=== PATIENT | male | born 1975 | race African-American/Black ===

== ENCOUNTER 2017-06-30 00:43 | Emergency (ER) | payer SELFPAY ==
--- NOTE | 2017-06-30 00:54 | PDOC ---
History of Present Illness - General Stated Complaint: INTOX Time Seen by Provider: 06/30/17 00:52 - History of Present Illness Initial Comments: 06/30/17 01:36 41 yo M with no significant pmh BIBA with EtoH intoxication. Pt. reports waking up in hotel room, with no recollection of prior events. at bedside reports being home and calling pt. with hotel registration clerk answering and stating that pt. was passed out in hallway of hotel. He does not recall EtoH use, or illicit drug use. Does not recall who he was with, or how he arrived to [facility]. Does not recall EMS ride to [facility]. Denies N/V, F/C, CP, SOB, abdominal pain, urinary complaints, diarrhea, constipation, lightheadedness, weakness, sensory changes. Past History - Past Medical History Allergies/Adverse Reactions: Allergies Allergy/AdvReac Type Severity Reaction Status Date / Time No Known Allergies Allergy Verified 06/30/17 00:54 Home Medications: Ambulatory Orders NK [No Known Home Medication] 06/30/17 Review of Systems - Review of Systems Comments:: 06/30/17 00:53 GENERAL/CONSTITUTIONAL: No fever or chills. No weakness. HEAD, EYES, EARS, NOSE AND THROAT: No change in vision. No ear pain or discharge. No sore throat. CARDIOVASCULAR: No chest pain or shortness of breath RESPIRATORY: No cough, wheezing, or hemoptysis. GASTROINTESTINAL: No nausea, vomiting, diarrhea or constipation. GENITOURINARY: No dysuria, frequency, or change in urination. MUSCULOSKELETAL: No joint or muscle swelling or pain. No neck or back pain. SKIN: No rash NEUROLOGIC: No headache, vertigo, loss of consciousness, or change in strength/ sensation. ENDOCRINE: No increased thirst. No abnormal weight change HEMATOLOGIC/LYMPHATIC: No anemia, easy bleeding, or history of blood clots. ALLERGIC/IMMUNOLOGIC: No hives or skin allergy. *Physical Exam - Physical Exam Comments: 06/30/17 00:53 GENERAL: Awake, alert, and fully oriented, in no acute distress HEAD: No signs of trauma, normocephalic, atraumatic EYES: PERRLA, EOMI, sclera anicteric, conjunctiva clear ENT: Hearing grossly normal, nares patent, oropharynx clear without exudates. Moist mucosa NECK: Normal ROM, supple, no lymphadenopathy, JVD, or masses LUNGS: No distress, speaks full sentences, clear to auscultation bilaterally HEART: Regular rate and rhythm, normal S1 and S2, no murmurs, rubs or gallops, peripheral pulses normal and equal bilaterally. EXTREMITIES : Normal inspection, Normal range of motion, no edema. No clubbing or cyanosis. NEUROLOGICAL: Cranial nerves II through XII grossly intact. Normal speech, normal gait, no focal sensorimotor deficits. Normal DILIP. Neg dysmetria on FTN. SKIN: Warm, Dry, normal turgor, no rashes or lesions noted Medical Decision Making - Medical Decision Making 06/30/17 03:03 41 yo M w/ no significant pmh BIBA with EtoH intoxication following report of waking up in hotel room, with no recollection of prior events. Pt. found by hotel staff passed out in hallway of hot. Does not recall falling, but endorses mild diffuse, dull RUVALCABA. He does not recall EtoH use, or illicit drug use. Does not recall who he was with, or how he arrived to [facility]. Does not recall EMS ride to [facility]. Denies N/V, F/C, CP, SOB, abdominal pain, urinary complaints, diarrhea, constipation, lightheadedness, weakness, sensory changes. Currently asymptomatic, and HDS. ED Course: 06/30/17 03:11 CT HEAD NON CON 06/30/17 04:32 CT HEAD NON CON: Unremarkable. No evidence of hemorrhage or fracture. Pt. stable and ready for d/c with return precautions. *DC/Admit/Observation/Transfer Diagnosis at time of Disposition: Alcohol intoxication Qualifiers: Complication of substance-induced condition: uncomplicated Qualified Code(s): F10.920 - Alcohol use, unspecified with intoxication, uncomplicated - Discharge Dispostion Disposition: HOME Condition at time of disposition: Stable Admit: No - Referrals - Patient Instructions Printed Discharge Instructions: DI for Alcohol Abuse Additional Instructions: Please return to the emergency department with any new or worsening symptoms or concerns. Please follow up with your primary care physician within 72 hours. - Post Discharge Activity - Attestations Physician Attestion: 06/30/17 00:54 I attest to the information provided in this note.
[2017-06-30 00:59] VITALS: BP 154/100; PULSE 98; TEMP 97.9; BMI 36.0
--- NOTE | 2017-06-30 03:46 | PDOC ---
Attending Attestation - HPI HPI: 06/30/17 04:26 Patient is a 41 year old male with no significant past medical history who was brought by EMS to the ED with complaints of alcohol intoxication. Patient reports waking up in hotel room with no memory of events before hand. As per patient's , she was calling the patient from home with no luck and was not aware of his location or activities before coming to the hospital. She reports hotel staff answered the patient's phone and informed her that the patient was unconsciousness in the hotel hallway. Patient reports he does not remember ingestion any alcohol or illicit drugs today, as well as not remembering how he got to the hotel Denies chest pain, Sob. Denies nausea, vomiting. Denies contact with sick individuals, out of state travelling. Denies change in vision. Denies any other symptoms. Allergies: None Social history: No smoking. No alcohol. No illicit drugs. Surgical history None PMD: None <Rayo Zaldivar - Last Filed: 06/30/17 04:26> - Resident Resident Name: Kyle Olivares - ED Attending Attestation I have performed the following: I have examined & evaluated the patient, The case was reviewed & discussed with the resident, I agree w/resident's findings & plan, Exceptions are as noted - Physicial Exam PE: 06/30/17 04:36 Physical Exam General Appearance: Yes: Appropriately Dressed. No: Apparent Distress, Intoxicated HEENT: positive: EOMI, TAYLOR, Normal ENT Inspection, Normal Voice, TMs Normal, Pharynx Normal. negative: Pale Conjunctivae, Photophobia, Scleral Icterus (R), Scleral Icterus (L) Neck: positive: Trachea midline, Normal Thyroid, Supple. negative: Tender, Rigid, Carotid bruit, Stridor, Lymphadenopathy (R), Lymphadenopathy (L), Thyromegaly Respiratory/Chest: positive: Lungs Clear, Normal Breath Sounds. negative: Chest Tender, Respiratory Distress, Accessory Muscle Use, Labored Respiration, RES, Crackles, Rales, Rhonchi, Stridor, Wheezing, Dullness Cardiovascular: positive: Regular Rhythm, Regular Rate, S1, S2. negative: Edema , JVD, Murmur, Bradycardia, Tachycardia Vascular Pulses: Dorsalis-Pedis (R): 2+, Doralis-Pedis (L): 2+ Gastrointestinal/Abdominal: positive: Normal Bowel Sounds, Flat, Soft. negative : Tender, Organomegaly, Pulsatile Mass, Increased Bowel Sounds, Decreased BS, Distended, Guarding, Rebound, Hernia, Hepatomegaly, Spleenomegaly Lymphatic: negative: Adenopathy, Tenderness Musculoskeletal: positive: Normal Inspection. negative: CVA Tenderness, Decreased Range of Motion Extremity: positive: Normal Capillary Refill, Normal Inspection, Normal Range of Motion, Pelvis Stable. negative: Tender, Pedal Edema, Swelling, Erythema Integumentary: positive: Normal Color, Dry, Warm. negative: Cyanotic, Erythema , Jaundice, Rash Neurologic: positive: reservations and ticketing agent II-XII NML intact, Fully Oriented, Alert, Normal Mood/ Affect, Motor Strength 5/5. negative: EOM Palsy, Facial Droop, Sensory Deficit - Medical Decision Making 06/30/17 04:37 Pt treated and released <Maximilian Salazar - Last Filed: 06/30/17 04:37>
== END 2017-06-30 04:38 | disposition home or self-care (01) ==
LOC: JER 00:43
DX: F10.920 Alcohol use, unspecified with intoxication, uncomplicated (principal)
CPT/HCPCS: 70450-TC; 99281-25